=== PATIENT | female | born 2000 | race Caucasian/White ===

== ENCOUNTER 2023-04-16 23:34 | Emergency (ER) | payer OTHER, SELFPAY ==
[2023-04-16 23:40] VITALS: BP 119/78
--- NOTE | 2023-04-17 00:17 | ED.GENMED ---
History of Present Illness
<CHRISTIAN Francis - Last Filed: 04/17/23 01:11>
General
Chief Complaint: Skin Problem
Source: patient
Exam Limitations: none
Time Seen by Provider: 04/17/23 00:02
Nursing documentation reviewed up to this point in time: agreed with
Travel History
Have you had any contact with someone who has COVID-19?: No
Do you have any symptoms of coronavirus? Fever > 100 degrees, chills, cough, shortness of breath, sore throat, loss of taste or smell, muscle aches, or headache?: No
History of Present Illness
History of Present Illness:
22 y/o F presents to ED after dog scratch on face. Patient reports her dog scratched her chin 3 days ago. She reports a rash on her chin that has now spread to the rest of her face x 1 day. She reports the scratch did not bleed and was only a raised
red line. It is now larger, more red and throughout her face. She reports the rash is itchy and rainey. She reports it does feel warm. The rash has not changed in appearance. Patient has been putting Bactroban and Neosporin on the rash every few
hours. Patient denies fevers, chills, fatigue, new lotions, mediations, foods, swelling, SOB or bleeding/discharge. Patient did have a nerve block on her R neck for her parosmia 1 week ago.
Review of Systems
<CHRISTIAN Francis - Last Filed: 04/17/23 01:11>
Review of Systems
Allergies reviewed?: Yes
All Other Systems: ROS reviewed and negative except as documented in HPI and ROS
Constitutional: Reports no symptoms
EENT: Reports no symptoms
Respiratory: Reports no symptoms
Cardiac: Reports no symptoms
ABD/GI: Reports no symptoms
: Reports no symptoms
Musculoskeletal: Reports no symptoms
Skin: Reports itching and rash
Neurological: Reports no symptoms
Endocrine: Reports no symptoms
Hematologic/Lymphatic: Reports no symptoms
Psychiatric: Reports no symptoms
Phy Exam
<CHRISTIAN Francis - Last Filed: 04/17/23 01:11>
General Physical Exam
General Presentation: well appearing and no apparent distress
General age: appears stated age
General Skin: warm and dry
General Habitus: normal
General Mental: alert
General Hydration: appears well hydrated
Cardiovascular Exam
Cardiovascular Exam: regular rate/rhythm, no edema, no gallop, no murmur and normal peripheral pulses
Pulmonary Exam
Pulmonary Exam: lungs clear, no respiratory distress, no rales, no crackles and no rhonchi
Neurological Exam
Neurological Exam: alert and oriented x3
Skin Exam
Skin Exam: redness, warmth and other (maculopapular rash across chin, cheeks and forehead. No bleeding or drainage. )
Psychiatric Exam
Psychiatric Exam: normal mood/affect
Course
<CHRISTIAN Francis - Last Filed: 04/17/23 01:11>
Orders/Labs/Results
Orders:
Orders
04/17/23 00:29
Dexamethasone Pf [Decadron] 10 mg PO NOW STA
Diphenhydramine [Benadryl] 25 mg PO NOW STA
Vital Signs
Initial and Last Documented VS:
Initial Vital Signs
Temp Pulse Resp BP Pulse Ox
98.6 F 98 20 119/78 94
04/16/23 23:40 04/16/23 23:40 04/16/23 23:40 04/16/23 23:40 04/16/23 23:40
Last Documented Vital Signs
Temp Pulse Resp BP Pulse Ox
98.6 F 98 20 119/78 94
04/16/23 23:40 04/16/23 23:40 04/16/23 23:40 04/16/23 23:40 04/16/23 23:40
<Zoran Marcano DO - Last Filed: 04/17/23 01:13>
Orders/Labs/Results
Orders:
Orders
04/17/23 00:29
Dexamethasone Pf [Decadron] 10 mg PO NOW STA
Diphenhydramine [Benadryl] 25 mg PO NOW STA
Vital Signs
Initial and Last Documented VS:
Initial Vital Signs
Temp Pulse Resp BP Pulse Ox
98.6 F 98 20 119/78 94
04/16/23 23:40 04/16/23 23:40 04/16/23 23:40 04/16/23 23:40 04/16/23 23:40
Last Documented Vital Signs
Temp Pulse Resp BP Pulse Ox
98.6 F 98 20 119/78 94
04/16/23 23:40 04/16/23 23:40 04/16/23 23:40 04/16/23 23:40 04/16/23 23:40
<CHRISTIAN Francis - Last Filed: 04/17/23 01:11>
MDM/Problems Addressed
Differential Diagnosis Includes:
Allergic reaction
Poison Tomeka
Cellulitis (not likely)
<CHRISTIAN Francis - Last Filed: 04/17/23 01:11>
*Critical Care Note
Total Time (30-74mins, 75-104mins- exclusive of procedures): Not Applicable
<CHRISTIAN Francis - Last Filed: 04/17/23 01:11>
Update Note
Update Note:
0110: Patient stable. Reports burning is better after applying ice. Given PO Benadryl and Decadron. Patient is still reporting itchiness.
ED Attending Note
<CHRISTIAN Francis - Last Filed: 04/17/23 01:11>
-
Portions of this chart may have been created with voice recognition software.� Occasional wrong word or��sound alike� substitutions may have occurred due to the inherent limitations of voice recognition software.
<Zoran Marcano, - Last Filed: 04/17/23 01:13>
ED Attending Note
Patient seen and examined by attending physician: Yes
I performed the substantive portion of visit, reviewed & personally made and approve the management plan that is documented in note by myself or SUNNY.: Yes
ED Attending Note:
Pleasant 22-year-old female that presents with a rash on her face. She had a dog scratch on her chin 2 days ago. Since then she has noticed this red rash on both sides of her face. She did a nerve block a week ago on 1 side of her face. Denies
fever, chills, nausea or vomiting. When she was scratched by her dog, she denies any skin breakdown. Today she reported some itching. Patient was seen in conjunction with the PA student. I have reviewed and agree with the history and treatment
plan presented. On my independent physical exam, patient is awake, alert, and oriented x3, seemingly minimal acute distress. Macular rash on the chin and various parts of the face did not appear to be cellulitic in nature. It does seem to be
allergic. Patient put Neosporin on the entirety of her face.
Discharge Plan
Departure
Patient Disposition: Home (Routine Discharge)
Date of Disposition: 04/17/23
Time of Disposition: 01:10
Patient with high blood pressure during this ER visit?: No
Condition: Good
Discharge Problem:
Rash
Instructions: Skin Rash (DC), Wound Care (DC)
Prescriptions:
No Action
lidocaine HCl 4 % (40 mg/mL) solution
5 ml topical BID-TID Qty: 50 0RF
Rx Instructions:
Mix with 10mL liquid diphenhydramine (Benadryl) and gargle x 30 sec
Referrals:
Eduardo Huynh PA-C [Family Provider] -
Activity Restrictions/Additional Instructions:
It was a pleasure meeting you and taking part in your care. We hope for your continued healing and wellness.
Please read discharge instructions in their entirety. However, they are for general education and may not describe your exact diagnosis at discharge. Information on your ER visit and medical conditions were discussed with you along with appropriate
follow up information...
If indicated, please take your medications as instructed and indicated on discharge paperwork.
Please schedule a follow up appointment as directed. Call to schedule an appointment
Please return to the emergency department with ANY change in, persisting, or worsening of symptoms. If any of your symptoms do not improve, or persist, or become more severe within 6-12 hours, please return to the emergency department for further
care.
Please return to the emergency department if you develop a headache, neck pain/stiffness, fever greater than 100.4F, chest pain, shortness of breath, persistent nausea, vomiting, slurred speech, difficulty walking, numbness/tingling, weakness, signs
of infection or any other symptoms that are worrisome to you.
If you have any questions or concerns please do not hesitate to call the Hospital at or E-mail me directly at [email or web address]
Interventions
Interventions:
*Risk Screen - Suicide Last Done: 04/17/23 00:05
*Neglect/Abuse Screening Last Done: 04/17/23 00:05
ED- Fall Risk Assessment Last Done: 04/16/23 23:40
*ED COVID-19 Vaccine History Last Done: 04/16/23 23:40
ED-Skin Assessment Last Done: 04/17/23 00:05
[2023-04-17] MEDS: BENADRYL 25 MG PO (00:33)
[2023-04-17] MEDS: DECADRON 10 MG PO (00:33)
[2023-04-17 01:20] VITALS: BP 104/62
== END 2023-04-17 01:21 | disposition home or self-care (01) ==
LOC: EMR 23:34
PROVIDERS: EMERGENCY PHYSICIAN Student in an Organized Health Care Education/Training Program; FAMILY PHYSICIAN Physician Assistant Medical
DX: R21 Rash and other nonspecific skin eruption (principal)
CPT/HCPCS: 99283

== ENCOUNTER 2025-02-28 05:46 | Emergency (ER) | payer OTHER, SELFPAY ==
[2025-02-28] VITALS (8 sets, daily range): BP systolic 110–137; BP diastolic 64–104
[2025-02-28 06:06] LABS: Hematocrit 36.1 % (37.0-47.0); Hemoglobin 12.8 g/dL (12.0-16.0); Mean Corp Hgb Conc. 35.5 g/dL (33.0-37.0); Mean Corpuscular Volume 90.0 fL (81.0-99.0); Nucleated Red Blood Cells % 0 %; Platelet Count 251 10^3/uL (130-400); Red Cell Dist. Width 11.9 % (11.5-14.5)
[2025-02-28 06:22] LABS: ALT (SGPT) 15 U/L (0-35); AST (SGOT) 22 U/L (14-36); Albumin 4.2 g/dl (3.5-5.0); Alkaline Phosphatase 45 U/L (38-126); Blood Urea Nitrogen 5 mg/dl (7-17); COVID-19 Antigen Negative (Negative); Calcium 8.9 mg/dl (8.4-10.2); Carbon Dioxide 24 mmol/L (22-30); Chloride 104 mmol/L (98-107); Estimated Creatinine Clearance > 125 ml/min; Glucose 104 mg/dl (70-99); Potassium 4.0 mmol/L (3.5-5.1); Sodium 136 mmol/L (135-145); Total Protein 7.1 g/dl (6.3-8.2); eGFR > 60.00
--- NOTE | 2025-02-28 06:43 | ED.GENMED ---
History of Present Illness
General
Chief Complaint: Abdominal Pain
Source: patient and family (Mother and father)
Exam Limitations: none
Time Seen by Provider: 02/28/25 06:00
Nursing documentation reviewed up to this point in time: agreed with
History of Present Illness
History of Present Illness:
24-year-old female with a past medical history of gastroparesis and 'autonomic dysfunction' who presents to the emergency department with mother and father for evaluation of abdominal pain. Patient has been sick for the past few days with mild URI
symptoms�congestion, cough, low-grade fever and achiness. Patient has been taking fads-lqz-umnsvad medications including Mucinex, ibuprofen and started a short course of azithromycin yesterday. She woke up overnight at 1 AM with severe abdominal
pain and nausea/vomiting. She has a history of gastroparesis and reportedly has had similar flares of abdominal pain with severe nausea. Typically responds well to Zofran but she has received 2 doses this morning and does not seem to be helping.
She reports severe pain across the upper abdomen. Nausea and vomiting/dry heaving. She has had some diarrhea today. Denies any vaginal bleeding or urinary symptoms. She denies other acute complaints.
Review of Systems
Review of Systems
All Other Systems: ROS reviewed and negative except as documented in HPI and ROS
Constitutional: Reports fever and chills
EENT: Reports runny nose
Respiratory: Reports cough; Denies trouble breathing
Cardiac: Denies chest pain
ABD/GI: Reports abdominal pain, nausea, vomiting and diarrhea
: Denies flank pain
Musculoskeletal: Denies neck pain or back pain
Neurological: Denies dizzy or headache
Phy Exam
Physical Exam
Physical Exam:
General: Awake, alert, oriented x3; patient appears very uncomfortable and is crying
Head: Normocephalic, atraumatic
Eyes: Conjunctiva normal, sclera anicteric
Throat: Airway intact, somewhat dry mucous membranes
Neck: Trachea midline, supple without meningismus
Lungs: Clear to auscultation bilaterally, no wheezing, rales, rhonchi
Heart: Regular rate and rhythm, no murmurs, gallops, or rubs
Abd: Soft, non distended, diffusely tender maximal in the epigastrium
Neuro: Grossly intact
Skin: Warm and dry
Extremities: Warm and well-perfused
Scores
Heart Failure Risk
Heart Failure Risk Score: Not Applicable
Heart Score for Chest Pain Patients
STEMI patient?: Not applicable
Withdrawal Assessment of Alcohol
Withdrawal Assessment Completed?: Not applicable
Course
Orders/Labs/Results
Orders:
Orders
02/28/25 05:58
COVID-19 Antigen Urgent
Source: Nasal Swab
Complete Blood Count/With Diff Urgent
Comprehensive Metabolic Panel Urgent
HCG, Serum Qualitative Screen Urgent
Comment: ADD ON
Influenza A+B Rapid Molecular Urgent
JUHI Source: Nasal Swab
Specimen Description:
02/28/25 06:04
Test Result ONCE
02/28/25 06:34
Add On- LAB Urgent
Tests Added?: HCG
02/28/25 06:42
0.9% Sodium Chloride 1000 ml [Nss] 1,000 ml IV BOLUS
Diphenhydramine [Benadryl] 25 mg IV NOW STA
HYDROmorphone [Dilaudid] 0.5 mg IV NOW STA
Metoclopramide [Reglan] 10 mg IV NOW STA
02/28/25 06:43
Electrocardiogram (*1) Urgent
Reason for Study: QTc Monitoring
CT Abd/pelvis W Iv Cont Urgent
Comment:
Reason For Exam: severe abd pain, N/V
EKG- Treatment ONCE
02/28/25 07:44
US Pelvis W Transvag Combined Urgent
Comment:
Reason For Exam: abd pain, large cyst on right ovary--eval for tors
02/28/25 09:09
HYDROmorphone [Dilaudid] 0.5 mg IV NOW STA
Pantoprazole [Protonix IV] 40 mg IV NOW STA
02/28/25 11:03
Ondansetron Injectable [Zofran] 4 mg .ROUTE .STK-MED ONE
02/28/25 11:59
GASTROINTESTINAL CONSULT Urgent
Consulting Provider: Zeyad Peterson
Was physician already notified: Yes
Abnormal Lab Results
02/28/25
05:58
RBC 4.01 L 10^6/uL
(4.20-5.40)
Hct 36.1 L %
(37.0-47.0)
MCH 31.9 H pg
(27.0-31.0)
Absolute Lymphs (auto) 1.1 L 10^3/uL
(1.2-3.4)
Neutrophils % 77.6 H %
(42.2-75.2)
Lymphocytes % 14.6 L %
(20.5-51.1)
BUN 5 L mg/dl
(7-17)
Glucose 104 H mg/dl
(70-99)
02/28/25 05:58
02/28/25 05:58
Vital Signs
Initial and Last Documented VS:
Initial Vital Signs
Temp Pulse Resp BP Pulse Ox
36.6 C 82 16 122/79 100
02/28/25 05:47 02/28/25 05:47 02/28/25 05:47 02/28/25 05:47 02/28/25 05:47
Last Documented Vital Signs
Temp Pulse Resp BP Pulse Ox
36.6 C 84 18 122/64 98
02/28/25 05:47 02/28/25 12:25 02/28/25 12:25 02/28/25 12:09 02/28/25 12:25
MDM/Problems Addressed
Differential Diagnosis Includes:
Gastritis, gastroparesis, enteritis, pancreatitis, bowel obstruction
MDM/Problems Addressed:
24-year-old female with history as noted presents for evaluation of severe abdominal pain in the setting of recent URI symptoms and OTC medications. She does have history of gastroparesis with similar flareups but not responded to typical
medications. Vitals and exam as above. She had labs in triage including a CBC and a CMP which showed no clinically significant abnormalities. Added hCG. She did have COVID and flu swabs in triage and is positive for influenza which likely
accounts for her URI symptoms. Certainly you can have some abdominal cramping and GI symptoms with influenza however she says pain is quite severe and is currently writhing in bed crying and has severe tenderness in the epigastrium at a proportion
to what you would typically expect with viral syndrome. Certainly recent OTC medications may have caused flareup of chronic GI issues/gastroparesis. Will plan to treat symptomatically but we will check CT abdomen as well. Will monitor closely
reassess after the above.
Patient is hCG was negative. She was sent for CT abdomen which showed signs consistent with enterocolitis there was also a large right-sided ovarian cyst. Will check ultrasound to rule out torsion given severity of earlier pain however on clinical
reassessment after meds here patient is much more comfortable resting in bed. Overall suspect likely enterocolitis accounts for her symptoms given her vomiting and diarrhea.
Ultrasound shows no torsion. Reassessment patient had return of significant pain will repeat pain meds. Give PPI as well. Will continue to monitor.
Patient feeling better after second round of pain medication. Will trial p.o. and reassess.
Patient pain reasonably controlled here but she says she feels 'twisting' in her stomach and is very concerned about rebound symptoms. She does not wish to go home but at this point she looks very comfortable after medications and there is no clear
indication for hospitalization. I did discuss the case with gastroenterology to consult and provide recommendations for further care.
Discussed with GI, patient tolerated p.o. feel much better, stable for discharge. They recommended erythromycin as she has done well with this in the past for her gastroparesis. Can also start PPI. Follow-up with her usual GI doctor. Patient
comfortable with this plan. All questions answered.
Chronic conditions affecting care:
Gastroparesis
*Radiology
Radiology exam reviewed: radiology read reviewed
*Pulse Oximetry
SaO2: 98
Oxygen Mode of Delivery: Room air
Patient hypoxic: no (98%)
*EKG
Interpreted by ED Provider?: Yes
Heart Rate: 60
Rate: normal
Rhythm: sinus
Beverly: normal axis
Interval: normal QT interval
*Critical Care Note
Total Time (30-74mins, 75-104mins- exclusive of procedures): Not Applicable
Data Reviewed
Review of Other/Old Records Reveals: Labs and Records
Source: patient and family
Patient Management
Discussion with other providers: Camera Repair Technician (Discussed with gastroenterology)
ED Attending Note
-
Portions of this chart may have been created with voice recognition software.� Occasional wrong word or��sound alike� substitutions may have occurred due to the inherent limitations of voice recognition software.
Discharge Plan
Departure
Patient Disposition: Home (Routine Discharge)
Date of Disposition: 02/28/25
Time of Disposition: 15:01
Patient with high blood pressure during this ER visit?: No
Discharge Problem:
Abdominal pain, Nausea & vomiting
Instructions: Nausea and Vomiting, Adult (DC), Abdominal Pain
Prescriptions:
New
erythromycin ethylsuccinate [EryPed 200] 200 mg/5 mL suspension for reconstitution
200 mg PO TID 3 Days Qty: 45 0RF
pantoprazole 40 mg tablet,delayed release (DR/EC)
40 mg PO DAILY Qty: 14 0RF
No Action
lidocaine HCl 4 % (40 mg/mL) solution
5 ml topical BID-TID Qty: 50 0RF
Rx Instructions:
Mix with 10mL liquid diphenhydramine (Benadryl) and gargle x 30 sec
Referrals:
Shayy Vallecillo MD [Family Provider, Internal Medicine] - Call in 1-3 days for appt
Activity Restrictions/Additional Instructions:
Thank you for visiting the Emergency Department at [facility].
1. Please schedule a follow up appointment as directed. Call first thing tomorrow morning to make an appointment.
2. If indicated, please take your medications as instructed and indicated on discharge paperwork.
3. If any of your symptoms do not improve, or persist, or become more severe within 6-12 hours, please return to the emergency department for further care.
4. Please return to the emergency department if you develop a headache, neck pain/stiffness, fever greater than 100.4F, chest pain, shortness of breath, persistent nausea, vomiting, slurred speech, difficulty walking, numbness/tingling, weakness,
signs of infection or any other symptoms that are worrisome to you.
Please call [phone] if you have any questions.
Interventions
Interventions:
*General Assessment Last Done: 02/28/25 05:52
*Neglect/Abuse Screening Last Done: 02/28/25 05:52
*ED COVID-19 Vaccine History Last Done: 02/28/25 05:52
*ED Influenza Vaccine History Last Done: 02/28/25 05:52
[facility] Fall Risk Assessment Tool Last Done: 02/28/25 05:53
*Risk Screen - Suicide (C-SSRS) Last Done: 02/28/25 05:52
JK-Najxpe-Toyyjungxs Assessment Last Done: 02/28/25 05:53
Discharge Date and Time
Print Language: SWEDISH
[2025-02-28] MEDS: REGLAN 10 MG IV (06:47)
[2025-02-28] MEDS: BENADRYL 25 MG IV (06:47)
[2025-02-28] MEDS: DILAUDID 0.5 MG IV ×2 (06:47→09:20)
[2025-02-28] MEDS: NSS 1000 IV (06:47)
[2025-02-28 06:56] LABS: HCG, Serum Qualitative Screen Negative
[2025-02-28] MEDS: PROTONIX IV 40 MG IV (09:20)
[2025-02-28] MEDS: ROXICODONE 5 MG PO (15:38)
[2025-02-28] MEDS: ERYTAB 250 MG PO (16:01)
--- NOTE | 2025-02-28 17:28 | CON.GI ---
Consultation
-
Date/Time Consultation Requested: 02/28/2025
Date/Time Consultation Performed: 02/28/2025
Requesting Provider: ED
Performing Provider: Alissa MARTINEZ
Reason for Consultation: Gastroparesis
Medical History
Chief Complaint / HPI
Chief Complaint: Abdominal pain/nausea/vomiting
History of Present Illness:
24-year-old female with history of gastroparesis for the last 4 years previously following up with [facility]-currently following with Dr. Graves at [facility] presented to ED with abdominal pain with nausea and vomiting. Patient mother was present at
bedside. Patient was having upper respiratory symptoms such as cough/congestion/low-grade fever and was taking Mucinex/ibuprofen/antibiotics for few days. She developed severe/bilious vomiting. She has history of gastroparesis flareup in the
past. She was previously treated with erythromycin p.o for a year. Previously Reglan/domperidone was not effective. Last EGD/colonoscopy 4 to 5 years back.
Patient was tested positive for influenza in ED
Past Medical History
Past Medical History: Other (Gastroparesis)
Allergies / Home Medications
Allergy/AdvReac Type Severity Reaction Status Date / Time
No Known Allergies Allergy Verified 02/28/25 05:52
�Medication �Instructions �Recorded
lidocaine HCl 4 % (40 mg/mL) 5 ml topical BID-TID #50 mL 05/11/22
mucosal solution
erythromycin ethylsuccinate 200 200 mg (5 mL) PO TID 3 days #45 mL 02/28/25
mg/5 mL oral powder for suspension
(EryPed 200)
pantoprazole 40 mg tablet,delayed 40 mg PO DAILY #14 tabs 02/28/25
release
Review of Systems
Vital Signs
Temp Pulse Resp BP Pulse Ox
97.9 F 75 18 112/85 99
02/28/25 05:47 02/28/25 16:45 02/28/25 16:45 02/28/25 16:45 02/28/25 16:45
Physical Exam
Exam
General: Comfortable
Cardiac: S1/S2
GI: Soft, Non Distended and Tender (Mild epigastric tenderness with no rigidity)
Results
WBC 7.7 10^3/uL (4.8-10.8) 02/28/25 05:58
Hgb 12.8 g/dL (12.0-16.0) 02/28/25 05:58
Hct 36.1 % (37.0-47.0) L 02/28/25 05:58
MCV 90.0 fL (81.0-99.0) 02/28/25 05:58
Plt Count 251 10^3/uL (130-400) 02/28/25 05:58
Absolute Neuts (auto) 6.0 10^3/uL (1.4-6.5) 02/28/25 05:58
Sodium 136 mmol/L (135-145) 02/28/25 05:58
Potassium 4.0 mmol/L (3.5-5.1) 02/28/25 05:58
Chloride 104 mmol/L (98-107) 02/28/25 05:58
Carbon Dioxide 24 mmol/L (22-30) 02/28/25 05:58
BUN 5 mg/dl (7-17) L 02/28/25 05:58
Creatinine 0.6 mg/dL (0.6-1.0) 02/28/25 05:58
Calcium 8.9 mg/dl (8.4-10.2) 02/28/25 05:58
Total Bilirubin 0.4 mg/dl (0.2-1.3) 02/28/25 05:58
AST 22 U/L (14-36) 02/28/25 05:58
ALT 15 U/L (0-35) 02/28/25 05:58
Alkaline Phosphatase 45 U/L (38-126) 02/28/25 05:58
Diagnostic Image Results:
Prior GI Procedures:
EGD:
Colonoscopy:
Assessment / Plan
-
24-year-old female with prior history of gastroparesis currently follows up with GI at [facility] [place] admitted with abdominal pain/nausea/vomiting. Patient was having URI symptoms prior to that. Labs in ED no leukocytosis. Liver test normal.
Electrolytes normal.
CT abdomen/pelvis with IV contrast�no acute pathology. Large simple right ovarian cyst. Influenza was positive
I had a long discussion with the patient/patient's mother that her current symptoms can be a combination of gastroparesis flareup with current influenza. Advised to avoid NSAIDs. Adequate hydration
Advised to use PPI for the next 3 to 5 days. Patient has used erythromycin p.o. suspension in the past ( 200 mg PO tid ) . Okay to give prescription on discharge for the next 3 days. Patient mother will get in touch with GI at [facility] and renew
the prescription if necessary. Advised on small meals. Low-fat low fiber diet
Total Time Spent with Patient (in minutes): 55
-
-
Thank you for consultation and allowing me to participate in the patient's care. Please call the [facility] physician during the after hours with any questions or concerns.
== END 2025-02-28 16:50 | disposition home or self-care (01) ==
LOC: EMR 05:46
PROVIDERS: Emergency Medicine; CONSULT PHYSICIAN Internal Medicine Gastroenterology; EMERGENCY PHYSICIAN Emergency Medicine; FAMILY PHYSICIAN Emergency Medicine
DX: R10.10 Upper abdominal pain, unspecified (principal); R11.2 Nausea with vomiting, unspecified; R50.9 Fever, unspecified; R19.7 Diarrhea, unspecified; J11.1 Influenza due to unidentified influenza virus with other respiratory manifestations; R05.9 Cough, unspecified; R09.89 Other specified symptoms and signs involving the circulatory and respiratory systems; Z11.52 Encounter for screening for COVID-19; K31.84 Gastroparesis; N83.291 Other ovarian cyst, right side; G90.9 Disorder of the autonomic nervous system, unspecified
CPT/HCPCS: 99285; 96375 ×3; 96361 ×8; 96374; 96376; 74177; 76830; 76856; 80053; 84703; 85025; 87502; 87811; 93005; Q9967